=== PATIENT | female | born 1975 | race Caucasian/White ===

== ENCOUNTER 2017-01-17 00:54 | Inpatient (IN) ==
[2017-01-17 01:46] LABS: Apearance,Urine Slightly Hazy (Clear); Barbiturates Screen,Urine Negative (Negative); Benzodiazepines Screen,Urine Positive (Negative); Bilirubin,Urine Negative (Negative); Blood, Urine Negative (Negative); Cannabinoid Screen,Urine Positive (Negative); Glucose,Urine (UA) Negative (Negative); Hyaline Casts,Urine 6 /LPF (0-3); Ketones,Urine Negative (Negative); Mucus,Urine Moderate /LPF (Occasional); Nitrite,Urine Negative (Negative); Opiate Screen,Urine Negative (Negative); Phencyclidine Screen,Urine Negative (Negative); Protein,Urine Negative; RBC,Urine 1 /HPF (0-4); Squamous Epithelial Cell,Urine Occasional /HPF (0-10); Urine Color Yellow (Yellow); Urine Specific Gravity 1.024 (1.001-1.035); Urine Urobilinogen < 2.0 EU/DL (0.2-1.0); WBC,Urine 4 /HPF (0-6)
[2017-01-17 01:47] LABS: Basophils # 0.1 10*3/uL (0.0-0.2); Basophils % 0.9 % (0.0-0.8); Eosinophils # 0.2 10*3/uL (0.0-0.87); Eosinophils % 2.6 % (0.00-10.9); Hematocrit 36.7 VOL% (35.7-47.0); Hemoglobin 12.1 GM/DL (12.0-16.0); Immature Granulocytes % 0.3 %; Immature Granulocytes Absolute 0.02 #; Lymphocytes % 43.9 % (21.3-54.2); Mean Corpuscular Hemoglobin 29 PG (27-34); Mean Corpuscular Volume 87.6 FL (87-102); Mean Platelet Volume 12.4 FL (9.6-12.0); Monocytes # 0.5 10*3/uL (0.11-0.8); Monocytes % 7.6 % (1.7-12.7); Neutrophils # 3.1 10*3/uL (1.4-7.4); Neutrophils % 44.7 % (38.7-73.9); Platelet Count 207 T/CUMM (130-400); Red Blood Count 4.19 MC/CUMM (3.8-5.5); Red Cell Distribution Width 14.3 % (9.3-17.3); White Blood Count 6.9 T/CUMM (4-12)
[2017-01-17 01:54] LABS: Alanine Aminotransferase 15 U/L (13-56); Albumin 3.2 G/DL (3.4-5.0); Alkaline Phosphatase 41 U/L (45-117); Aspartate Amino Transferase 11 U/L (0-37); Bilirubin,Total < 0.39 MG/DL (0.2-1.0); Blood Urea Nitrogen 12 MG/DL (7-18); Calcium 8.6 MG/DL (8.5-10.1); Glucose 120 MG/DL (74-106); Osmolality,Calculated 279.4 MOS/KG (273-304); Potassium 2.9 MMOL/L (3.5-5.1); Sodium 140 MMOL/L (136-145); Total Protein 6.7 G/DL (6.4-8.3)
[2017-01-17] MEDS ORDERED: POTASSIUM CHLORIDE 20 MEQ TABLET PO STA (02:03)
[2017-01-17] MEDS ORDERED: POTASSIUM CHLORIDE 20 MEQ PACK ONE ×2 (02:06→02:07)
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
[2017-01-17] MEDS ORDERED: ACETAMINOPHEN 325 MG TABLET PO PRN (02:29)
[2017-01-17] MEDS ORDERED: ONDANSETRON 4 MG/2 ML VIAL IV PRN (02:29)
[2017-01-17] MEDS ORDERED: ALBUTEROL 2.5 MG/3 ML NEB RESP TX PRN (02:29)
--- NOTE | 2017-01-17 02:36 | Hospitalist History & Physical ---
Assessment and Plan (1) Altered mental status Status: Acute Current Visit: Yes (2) Benzodiazepine overdose Status: Acute Assessment and plan: Our plan for this patient will be admitting her for close observation in the unit. I will start her on IV fluids. Patient was given some p.o. potassium in ER and I am going to continue with IV potassium. Will draw repeat labs at 7 AM. When Patient is awake and alert she can be discharged home. There is no evidence that she was trying to harm herself. Current Visit: Yes History of Present Illness Chief complaint: Altered mental status History of present illness: Ms. Lopez is a 41 year old female who was brought into the ED by EMS. [place] police responded to a call at [facility]. Apparently patient had been sleeping in the car since 9 PM. Patient was lethargic and was able to talk to the ER physician. Patient admits to having a similar situation approximately 3 months ago. She is unsure about what time she took her Xanax today. But she denied taking more than twice a day. But there was a significant number missing from her prescription bottle. Patient is stable but very lethargic I was consulted to admit her. Home Medications Medication Instructions Recorded Confirmed Type ALPRAZolam [Xanax] 1 mg PO BID 10/18/16 10/19/16 History Ferrous Sulfate 325 mg PO DAILY 10/18/16 10/19/16 History Gabapentin Cap/Tab [Neurontin 600 mg PO TID 10/18/16 10/19/16 History Cap/Tab] Lisinopril/Hydrochlorothiazide 1 each PO DAILY 10/18/16 10/19/16 History [Lisinopril-Hctz 10-12.5 mg Tab] Potassium 1 tablet PO DAILY 10/18/16 10/19/16 History Acetamin/Codeine 300-30 Tab 1 tablet PO Q6H #20 tablet 10/19/16 Rx [Tylenol/Codeine #3] Allergies Allergy/AdvReac Type Severity Reaction Status Date / Time cephalexin [From Keflex] Allergy Mild RASH Verified 10/18/16 11:52 Gatifloxacin [From Tequin] Allergy Mild RASH Verified 10/18/16 11:52 morphine Allergy Mild RASH Verified 10/18/16 11:52 Sulfa (Sulfonamide Allergy Mild RASH Verified 10/18/16 11:52 Antibiotics) tramadol [From Ultram] AdvReac Mild Nausea Verified 10/18/16 11:52 Medical,Surgical,& Family Hx - Medical History Cardio: History of: Hypertension Psychological: History of: Anxiety Disorders, Depression, Psychiatric Problems ( Severe Panic Attacks) Neurology: No history of: Seizures HEENT: History of: Eye Problem (Glasses), HEENT Problems (Sinus/Allergies) No history of: Dental Problems Respiratory: No history of: Respiratory Problems (No Flu Vac 2015/2016 Season) Musculoskeletal: History of: Back/Neck Problems (Neck Pain), Musculoskeletal Problems (Fx Arm) No history of: Amputation, Herniated Disk (?) Hematology: History of: Anemia Reproductive: History of: Ovarian Cysts Other: No history of: Anesthesia Reactions, Cancer - Surgical History Thoracic Surgeries: Patient denies;: Lobectomy Neurologic Surgeries: Patient denies: Neurologic Surgery HEENT Surgeries: Patient denies: Eye Surgery, Tonsilectomy & Adenoidectomy Abdominal Surgeries: Patient denies: Abdominal Surgery Reproductive Surgeries: Patient denies;: Genitourinary Surgery, Gynecologic Surgery - Family History Family History: Reports;: Family Hypertension - Social History Smoking Status: Unknown if ever smoked Frequency of Alcohol Use: Unknown Type of Drug Use: Prescription Drug Abuse ROS unobtainable: due to mental status Exam - Constitutional Vitals: Period Temp Pulse Resp BP Sys/Moran Pulse Ox Last 24 Hr 97.5 F-97.6 F 60-65 18-20 91-92/69-71 100-100 - General General appearance: lethargic but will wake up - Head Head exam: Present: atraumatic, normocephalic - Eye Eye exam: Present: PERRL - ENT ENT exam: Present: mucous membranes moist. - Neck Neck exam: Present: full ROM, trachea midline - Chest Chest inspection: Present: symmetric chest wall rise - Respiratory Respiratory exam: Present: normal lung sounds bilaterally. Absent: respiratory distress - Cardiovascular Cardiovascular exam: Present: regular rate, normal rhythm, normal heart sounds - Extremities Exam Extremities exam: Present: full ROM. Absent: tenderness, pedal edema - Neurological Exam Neurological exam: Present: oriented X3, CN II-XII intact. Absent: alert - Psychiatric Psychiatric exam: Present: flat affect - Skin Skin exam: Present: warm, dry Results - Labs CBC & BMP: 01/17/17 01:19 01/17/17 01:19
[2017-01-17] MEDS ORDERED: POTASSIUM CHLORIDE INJ 10 MEQ in SODIUM CHLORIDE 0.45% 1,000 ML IV SCH (03:30)
[2017-01-17 07:13] LABS: Calcium 8.7 MG/DL (8.5-10.1); Osmolality,Calculated 281.1 MOS/KG (273-304); Potassium 3.9 MMOL/L (3.5-5.1)
--- NOTE | 2017-01-17 07:24 | XRay Report ---
History: Drug overdose Date: 01/17/2017 Study: Chest x-ray AP portable Comparison exam: October 18, 2016 The cardiomediastinal silhouette is unremarkable. The pulmonary vasculature is not engorged. There is no gross pleural effusion. There is some accentuation of the interstitial markings related to shallow inspiration. There is no gross pneumonia. Osseous structures are unchanged. Impression: No gross evidence of an acute process. Shallow inspiration PROCEDURE INTERPRETED AT [facility] DEPARTMENT OF RADIOLOGY Final Report Signed by: Dr. Evelia Lewis
[2017-01-17] MEDS ORDERED: PANTOPRAZOLE 40 MG TABLET PO SCH (09:00)
[2017-01-17] MEDS ORDERED: ENOXAPARIN 40 MG/0.4 ML SYRINGE SUBCUT SCH (09:00)
--- NOTE | 2017-01-17 10:30 | Discharge Summary ---
Hospital Course - Hospital Course Hospital Course: 41 year old female who was brought into the ED by EMS. Apparently police responded to a call at [facility], and patient had been sleeping in the car several hours. Ppatient was lethargic and was able to talk to the ER physician. She was admitted to the intensive care unit for observation. This morning she is awake and alert or oriented 3. She adamantly denies any drug overdose. She says that she is prescribed Xanax 2 mg twice daily. She is certain that she also takes Adderall occasionally. Urine drug screen was positive for amphetamine and cannabinoids and benzodiazepines. The patient is denying suicidal or homicidal ideation, also denying any drug overdose, is otherwise stable hemodynamically, she is being discharged home today. Discharge time 20 minutes. - Time spent with patient Time with patient DS: Less than 30 minutes Diagnosis - Discharge Diagnosis (1) Altered mental status Status: Resolved Discharge Plan - Discharge Data Condition at Discharge: Stable Discharge Diet: advance to your usual diet Activity: resume usual activities as tolerated Hygiene: no restrictions Weight Bearing at Discharge: full weight bearing Driving: no restrictions - Discharge Medications Continue Ferrous Sulfate 325 mg PO BID Potassium Chloride Cap/Tab [K Dur] 10 meq PO DAILY Acetamin/Codeine 300-30 Tab [Tylenol/Codeine #3] 1 tablet PO Q6H PRN PRN Reason: Pain ALPRAZolam [Xanax] 2 mg PO BID PRN PRN Reason: Anxiety hydroCHLOROthiazide [Hydrochlorothiazide] 12.5 mg PO DAILY Metoprolol Succinate 50 mg PO BEDTIME Gabapentin Cap/Tab [Neurontin Cap/Tab] 600 mg PO TID - Follow Up or Referral - Forms/Instructions Exam - Constitutional Vitals: Period Temp Pulse Resp BP Sys/Moran Pulse Ox Last 24 Hr 97.5 F-98.9 F 57-77 14-23 75-104/55-72 98-100 Exam: General: No Acute Distress HEENT: Normocephalic, atraumatic, Extra ocular movements intact Neck: Supple, No JVD Chest: Clear to auscultation B/L CV: S1 + S2 audible without murmur, gallop or rub Abd: soft, NT, Non-distended, BS + Ext: No edema Skin: No purpura, bruising or rash Rheumatologic: No Joint deformities Neurologic: Alert and oriented x 3 Discharge Results Procedures and tests throughout hospitalization: Pending Orders 01/17/17 07:08 MRSA Surveillence, Inf Control Routine Labs on day of discharge: Labs from last 24 hours 01/17/17 01/17/17 01/17/17 05:54 01:19 01:19 WBC 6.9 RBC 4.19 Hgb 12.1 Hct 36.7 MCV 87.6 MCH 29 MCHC 33.0 RDW 14.3 Plt Count 207 MPV 12.4 H Neut % (Auto) 44.7 Lymph % (Auto) 43.9 [place] % (Auto) 7.6 Eos % (Auto) 2.6 Baso % (Auto) 0.9 H Neut # (Auto) 3.1 Lymph # (Auto) 3.0 [place] # (Auto) 0.5 Eos # (Auto) 0.2 Baso # (Auto) 0.1 Immature Gran % 0.3 Nucleated RBC % 0.0 Immature Gran # 0.02 Nucleated RBCs # 0.00 Immature Plt Fraction 0.0 Sodium 142 140 Potassium 3.9 2.9 L Chloride 109 H 109 H Carbon Dioxide 25 28 Anion Gap 11.9 5.9 BUN 13 12 Creatinine 0.70 0.80 GFR Calculation 96 82 BUN/Creatinine Ratio 18.00 15.00 Glucose 80 120 H Calculated Osmolality 281.1 279.4 Calcium 8.7 8.6 Total Bilirubin < 0.39 AST 11 ALT 15 Alkaline Phosphatase 41 L Total Protein 6.7 Albumin 3.2 L Globulin 3.5 Albumin/Globulin Ratio 0.9 L Lipase 164.0 Urine Color Urine Appearance Urine pH Ur Specific [place] Urine Protein Urine Glucose (UA) Urine Ketones Urine Blood Urine Nitrate Urine Bilirubin Urine Urobilinogen Urine Leukocytes Urine RBC Urine WBC Ur Squamous Epith Cells Hyaline Casts Urine Mucus Ur Culture Indicated? Urine Test Urine Opiates Screen Ur Barbiturates Screen Ur Phencyclidine Scrn U Amphetamine/Methamph U Benzodiazepines Scrn U Cocaine Metab Screen U Cannabinoids Screen 01/17/17 01/17/17 01/17/17 01:05 01:05 01:05 WBC RBC Hgb Hct MCV MCH MCHC RDW Plt Count MPV Neut % (Auto) Lymph % (Auto) [place] % (Auto) Eos % (Auto) Baso % (Auto) Neut # (Auto) Lymph # (Auto) [place] # (Auto) Eos # (Auto) Baso # (Auto) Immature Gran % Nucleated RBC % Immature Gran # Nucleated RBCs # Immature Plt Fraction Sodium Potassium Chloride Carbon Dioxide Anion Gap BUN Creatinine GFR Calculation BUN/Creatinine Ratio Glucose Calculated Osmolality Calcium Total Bilirubin AST ALT Alkaline Phosphatase Total Protein Albumin Globulin Albumin/Globulin Ratio Lipase Urine Color Yellow Urine Appearance Slightly hazy Urine pH 5.0 Ur Specific [place] 1.024 Urine Protein Negative Urine Glucose (UA) Negative Urine Ketones Negative Urine Blood Negative Urine Nitrate Negative Urine Bilirubin Negative Urine Urobilinogen < 2.0 H Urine Leukocytes Trace Urine RBC 1 Urine WBC 4 Ur Squamous Epith Cells Occasional Hyaline Casts 6 Urine Mucus Moderate Ur Culture Indicated? Not indicated Urine Test Negative Urine Opiates Screen Negative Ur Barbiturates Screen Negative Ur Phencyclidine Scrn Negative U Amphetamine/Methamph Positive H U Benzodiazepines Scrn Positive H U Cocaine Metab Screen Negative U Cannabinoids Screen Positive H DS: Provider Date of admission: 01/17/17 02:29 Primary care physician: Penny Segura MD Attending physician on admission: Emerson Dillon MD Consults: 01/17/17 03:16 Consult to Dietitian [CONS] Routine Reason for Dietitian: Dietary Consult Discharging clinician: Emma Gaines MD
[2017-01-17 10:32] VITALS: BP 101/71
== END 2017-01-17 11:22 | disposition home or self-care (01) | DRG 812 ==
LOC: N.ED 00:54 → N.EDINP 02:29 → SUATTDRO 02:29 → N.ICU 02:54
PROVIDERS: ADMIT Internal Medicine; ATTEND Hospitalist